=== PATIENT | male | born 1970 | race Two or more races ===

== ENCOUNTER → 2016-04-08 | Outpatient (CLI) | payer OTHER ==
--- NOTE | 2016-04-08 18:10 | DX ---
Left knee, 3 views. HISTORY: Pain. FINDINGS: Joint spaces are maintained. No fracture or joint effusion. IMPRESSION: Normal exam.
== END ==
LOC: CIMAGING 11:50
PROVIDERS: ATTEND Internal Medicine Rheumatology
DX: M25.562 Pain in left knee (principal)
CPT/HCPCS: 73562-PO